=== PATIENT | female | born 1960 | race Caucasian/White ===

== ENCOUNTER 2021-10-24 07:15 | Inpatient (IN) ==
[~2021-10-24 07:15] MED LIST: Buffered Lidocaine 1% SYRIN 1 ml INTRADERM ONE; Lactated Ringers 1000 ml BAG 1,000 ML IV SCH
[2021-10-24] MEDS ORDERED: Midazolam 2 mg/2 ml VIAL 1 mg/ml 2 ml VIAL (2 mg) ONE ×2 (07:25→08:47)
[2021-10-24] MEDS ORDERED: Propofol 10 MG/ML 20 ML BTL ONE ×3 (07:25→09:50)
[2021-10-24] MEDS ORDERED: fentaNYL 100 mcg/2 ml 50 MCG/ML VIAL ONE ×2 (07:25→07:39)
[2021-10-24] MEDS ORDERED: ceFAZolin 2 GM in NS PREMIX 2 GM/100 ML BAG IVPB ONE (07:38)
[2021-10-24] MEDS ORDERED: ROPIVACAINE 5 MG/ML 30 ML BTL (0.5%) ONE ×2 (07:39→07:56)
[2021-10-24] MEDS ORDERED: Midazolam 5 mg/5 ml VIAL 1 mg/ml 5 ml VIAL (5 mg) ONE (07:39)
[2021-10-24] MEDS ORDERED: Lidocaine 1% MPF 5 ML VIAL ONE (07:39)
[2021-10-24 08:17] LABS: Activated Partial Thrombo Time 35.9 seconds (26.0-38.0)
[2021-10-24] MEDS ORDERED: Famotidine IV 10 MG/ML 2 ml VIAL (20 mg) IV SLOW PU ONE (08:27)
[2021-10-24 08:31] LABS: Calcium 9.6 mg/dL (8.6-10.3); Potassium 3.6 mmol/L (3.5-5.0)
[2021-10-24] MEDS ORDERED: Famotidine IV 10 MG/ML 2 ml VIAL (20 mg) ONE (08:34)
[2021-10-24 09:11] LABS: INR 1.17 (0.86-1.15)
[2021-10-24] MEDS ORDERED: Ondansetron 4 mg VIAL 2 MG/ML 2 ml VIAL IV PRN ×2 (09:53→10:41)
[2021-10-24] MEDS ORDERED: HYDROmorphone 1 MG/1 ML SYRINGE IV PRN (09:53)
[2021-10-24] MEDS ORDERED: Naloxone 0.4 mg VIAL 0.4 mg/ml 1 ml VIAL IV PRN (09:53)
[2021-10-24] MEDS ORDERED: fentaNYL 100 mcg/2 ml 50 MCG/ML VIAL IV PRN (09:53)
[2021-10-24] MEDS ORDERED: Lactulose 30 ml UDC PO PRN (10:41)
[2021-10-24] MEDS ORDERED: Magnesium Hydroxide LIQ 30 ML UDC PO PRN (10:41)
[2021-10-24] MEDS ORDERED: Ondansetron ODT 4 mg TAB 4 MG TAB PO PRN (10:41)
[2021-10-24] MEDS ORDERED: Dulaglutide (NF) 1.5 MG/0.5 ML SYRINGE SUBCUT SCH (11:00)
[2021-10-24] MEDS ORDERED: oxyCODONE/Acetamin 10/325(NF) TAB PO PRN (11:47)
[2021-10-24] MEDS ORDERED: Dextrose 50% Syringe 50 ml 25 GM/50 ML SYRINGE IV PUSH PRN (12:13)
[2021-10-24] MEDS: Morphine 2 MG/ML SYRINGE IV PRN (14:51)
[2021-10-24] MEDS: Lactated Ringers 1000 ml BAG 1,000 ML IV SCH ×2 (14:54→23:49)
[2021-10-24] MEDS: ceFAZolin 1 GM ADVAN 1 GM in NS 0.9% 50 ML 50 ML IVPB SCH (17:55)
[2021-10-24] MEDS ORDERED: GLIPIZIDE METFORMIN PO SCH (21:00)
[2021-10-24] MEDS: Magnesium Hydroxide LIQ 30 ML UDC PO SCH (21:33)
[2021-10-24] MEDS: oxyCODONE SR 20 mg TAB PO SCH (21:35)
[2021-10-25] MEDS: ceFAZolin 1 GM ADVAN 1 GM in NS 0.9% 50 ML 50 ML IVPB SCH ×2 (01:57→08:48)
[2021-10-25 06:40] LABS: Hematocrit 36 % (35-47); Hemoglobin 12.2 g/dL (12.0-16.0); Mean Platelet Volume 8.2 fL (7.4-10.4); Platelet Count 183 10^3/uL (150-450)
[2021-10-25 07:03] LABS: Blood Urea Nitrogen 9 mg/dL (6-24); CO2 Carbon Dioxide 36 mmol/L (22-32); Calcium 8.5 mg/dL (8.6-10.3); Chloride 100 mmol/L (101-111); Glucose 126 mg/dL (70-100); Sodium 142 mmol/L (135-145); eGFR CKD-EPI 98.1 (>60)
[2021-10-25 07:21] LABS: Anion Gap 6 mmol/L (2-11)
[2021-10-25] MEDS: Morphine 2 MG/ML SYRINGE IV PRN ×2 (08:47→14:56)
[2021-10-25] MEDS: Magnesium Hydroxide LIQ 30 ML UDC PO SCH ×2 (08:50→20:50)
[2021-10-25] MEDS: DULoxetine DR 60 mg CAP PO SCH (08:51)
[2021-10-25] MEDS: Vitamin THERAPEUTIC TAB PO SCH (08:51)
[2021-10-25] MEDS: oxyCODONE SR 20 mg TAB PO SCH ×2 (08:52→20:43)
[2021-10-26 06:12] LABS: Hematocrit 33 % (35-47); Hemoglobin 11.5 g/dL (12.0-16.0); Mean Platelet Volume 7.9 fL (7.4-10.4); Platelet Count 173 10^3/uL (150-450)
[2021-10-26] MEDS: Magnesium Hydroxide LIQ 30 ML UDC PO SCH ×2 (08:39→20:59)
[2021-10-26] MEDS: Vitamin THERAPEUTIC TAB PO SCH (08:41)
[2021-10-26] MEDS: oxyCODONE SR 20 mg TAB PO SCH ×2 (08:41→20:58)
[2021-10-26] MEDS: DULoxetine DR 60 mg CAP PO SCH (08:41)
[2021-10-26 09:23] LABS: Calcium 8.4 mg/dL (8.6-10.3); Potassium 3.9 mmol/L (3.5-5.0); eGFR CKD-EPI 106.4 (>60)
[2021-10-26 10:36] LABS: ABS Eosinophils 0.1 10^3/ul (0-0.6); ABS Monocytes 0.6 10^3/ul (0-0.8); ABS Neutrophils 5.1 10^3/ul (1.5-7.7); Eosinophil % 0.9 %; Mean Corpuscular HGB Conc 35 g/dL (31-36); Mean Corpuscular Hemoglobin 31 pg (27-31); Mean Corpuscular Volume 90 fL (80-97); Nucleated Red Blood Cells % 0.1; Red Cell Distribution Width 14 % (10-15); White Blood Count 7.8 10^3/uL (3.5-10.8)
[2021-10-27 06:13] LABS: Hematocrit 32 % (35-47); Hemoglobin 10.9 g/dL (12.0-16.0); Mean Platelet Volume 8.3 fL (7.4-10.4); Platelet Count 193 10^3/uL (150-450)
[2021-10-27] MEDS: DULoxetine DR 60 mg CAP PO SCH (08:49)
[2021-10-27] MEDS: oxyCODONE SR 20 mg TAB PO SCH ×2 (08:49→20:34)
[2021-10-27] MEDS: Vitamin THERAPEUTIC TAB PO SCH (08:50)
[2021-10-27] MEDS: Magnesium Hydroxide LIQ 30 ML UDC PO SCH ×2 (08:52→20:36)
[2021-10-28 05:59] LABS: Hematocrit 35 % (35-47); Hemoglobin 11.8 g/dL (12.0-16.0); Mean Platelet Volume 7.8 fL (7.4-10.4); Platelet Count 227 10^3/uL (150-450)
[2021-10-28] MEDS: Magnesium Hydroxide LIQ 30 ML UDC PO SCH (10:17)
[2021-10-28] MEDS: oxyCODONE SR 20 mg TAB PO SCH ×2 (10:25→20:04)
[2021-10-28] MEDS: Vitamin THERAPEUTIC TAB PO SCH (10:26)
[2021-10-28] MEDS: DULoxetine DR 60 mg CAP PO SCH (10:26)
[2021-10-29 05:19] LABS: Hematocrit 33 % (35-47); Hemoglobin 11.4 g/dL (12.0-16.0); Mean Platelet Volume 7.7 fL (7.4-10.4); Platelet Count 241 10^3/uL (150-450)
[2021-10-29] MEDS: oxyCODONE SR 20 mg TAB PO SCH (08:19)
[2021-10-29] MEDS: DULoxetine DR 60 mg CAP PO SCH (08:20)
[2021-10-29] MEDS: Vitamin THERAPEUTIC TAB PO SCH (08:21)
[2021-10-29 11:51] VITALS: BP 140/64
== END 2021-10-29 16:45 | disposition home health service (06) | DRG 850 ==
LOC: OR 07:15 → INTOOBSV 14:23 → SSU 14:23
PROVIDERS: ADMIT Orthopaedic Surgery Adult Reconstructive Orthopaedic Surgery; ATTEND Orthopaedic Surgery Adult Reconstructive Orthopaedic Surgery

== ENCOUNTER 2021-12-26 09:48 | Observation (INO) ==
[2021-12-26] MEDS ORDERED: ceFAZolin 2 GM in NS PREMIX 2 GM/100 ML BAG IVPB ONE (10:27)
[2021-12-26] MEDS ORDERED: Midazolam 5 mg/5 ml VIAL 1 mg/ml 5 ml VIAL (5 mg) ONE (11:41)
[2021-12-26] MEDS ORDERED: ROPIVACAINE 5 MG/ML 30 ML BTL (0.5%) ONE ×2 (12:57→12:58)
[2021-12-26] MEDS ORDERED: Lidocaine 1% MPF 5 ML VIAL ONE (12:58)
[2021-12-26] MEDS ORDERED: Lidocaine 2% PF 5 ML VIAL ONE (13:37)
[2021-12-26] MEDS ORDERED: Ondansetron ODT 4 mg TAB 4 MG TAB PO PRN (13:50)
[2021-12-26] MEDS ORDERED: Ondansetron 4 mg VIAL 2 MG/ML 2 ml VIAL IV PRN (13:50)
[2021-12-26] MEDS ORDERED: Lactulose 30 ml UDC PO PRN (13:50)
[2021-12-26] MEDS ORDERED: Magnesium Hydroxide LIQ 30 ML UDC PO PRN (13:50)
[2021-12-26] MEDS ORDERED: oxyCODONE/Acetamin 10/325(NF) TAB PO PRN (13:57)
[2021-12-26] MEDS ORDERED: Acetaminophen IV 1 GM/100ML 100 ML IV ONE (15:20)
[2021-12-26] MEDS ORDERED: HYDROmorphone 1 MG/1 ML SYRINGE ONE (15:53)
[2021-12-26] MEDS ORDERED: Naloxone 0.4 mg VIAL 0.4 mg/ml 1 ml VIAL IV PRN (16:12)
[2021-12-26] MEDS ORDERED: HYDROmorphone 1 MG/1 ML SYRINGE IV PRN (16:12)
[2021-12-26] MEDS: Lactated Ringers 1000 ml BAG 1,000 ML IV SCH (17:09)
[2021-12-26] MEDS: Morphine 2 MG/ML SYRINGE IV PRN (17:23)
[2021-12-26] MEDS: oxyCODONE SR 20 mg TAB PO SCH (20:40)
[2021-12-26] MEDS: Magnesium Hydroxide LIQ 30 ML UDC PO SCH (20:41)
[2021-12-26] MEDS: ceFAZolin 1 GM ADVAN 1 GM in NS 0.9% 50 ML 50 ML IVPB SCH (21:57)
[2021-12-27] MEDS: Lactated Ringers 1000 ml BAG 1,000 ML IV SCH (03:21)
[2021-12-27] MEDS: ceFAZolin 1 GM ADVAN 1 GM in NS 0.9% 50 ML 50 ML IVPB SCH ×2 (04:58→12:36)
[2021-12-27 06:07] LABS: Hematocrit 37 % (35-47); Hemoglobin 12.4 g/dL (12.0-16.0); Mean Platelet Volume 8.3 fL (7.4-10.4); Platelet Count 185 10^3/uL (150-450)
[2021-12-27 06:26] LABS: Calcium 8.6 mg/dL (8.6-10.3); Potassium 3.5 mmol/L (3.5-5.0); eGFR CKD-EPI 72.8 (>60)
[2021-12-27] MEDS: Magnesium Hydroxide LIQ 30 ML UDC PO SCH (08:12)
[2021-12-27] MEDS: oxyCODONE SR 20 mg TAB PO SCH (08:13)
[2021-12-27] MEDS ORDERED: Vitamin THERAPEUTIC TAB PO SCH (09:00)
[2021-12-27] MEDS ORDERED: DULoxetine DR 60 mg CAP PO SCH (09:00)
[2021-12-27] MEDS ORDERED: GLIPIZIDE METFORMIN PO SCH (09:00)
[2021-12-27] MEDS: Morphine 2 MG/ML SYRINGE IV PRN (09:28)
[2021-12-27 12:04] VITALS: BP 123/56
[2021-12-29] MEDS ORDERED: NFT: Dulaglutide (NF) 1.5 MG/0.5 ML SYRINGE SUBCUT SCH (09:00)
== END 2021-12-27 13:20 | disposition home or self-care (01) ==
LOC: SDS 09:48 → SSU 09:48
PROVIDERS: ADMIT Orthopaedic Surgery Adult Reconstructive Orthopaedic Surgery; ATTEND Orthopaedic Surgery Adult Reconstructive Orthopaedic Surgery